=== PATIENT | female | born 1975 | race Caucasian/White ===

== ENCOUNTER 2017-09-15 08:30 | Emergency (ER) | payer SELFPAY ==
[2017-09-15] MEDS ORDERED: Ondansetron ODT 4 MG TAB ONE (09:03)
== END 2017-09-15 09:31 | disposition home or self-care (01) ==
LOC: BURERS 08:30
DX: J11.1 Influenza due to unidentified influenza virus with other respiratory manifestations (principal); Z87.891 Personal history of nicotine dependence
CPT/HCPCS: 99283; Q0162